=== PATIENT | female | born 2000 | race Caucasian/White ===

== ENCOUNTER 2020-04-10 15:38 | Emergency (ER) | payer BC ==
[~2020-04-10] VITALS: Wt 61.2 kg
[2020-04-10] MEDS ORDERED: CEPHALEXIN500 M1 PO (16:38)
== END 2020-04-10 16:47 | disposition home or self-care (01) ==
LOC: ED 15:38
DX: S81.011A Laceration without foreign body, right knee, initial encounter (principal); Z88.6 Allergy status to analgesic agent; W45.8XXA Other foreign body or object entering through skin, initial encounter; Y93.89 Activity, other specified; Y92.89 Other specified places as the place of occurrence of the external cause; Y99.8 Other external cause status